=== PATIENT | female | born 1945 | race Caucasian/White ===

== ENCOUNTER → 2017-12-23 | Outpatient (CLI) | payer OTHER ==
[~2017-12-23] MED LIST: ARTIOIN OP; BENTYL PO; CARV6.252 PO; CLOP1TAB15 PO; CRAN1CAP6 PO; CYCL10TA6 PO; ERGO500037 PO; EZET10TA38 PO; ISOS30TA35 PO; METF-382 PO; NITR0.4S UT; NVLGI/PEN SC; OXYC1TAB3 PO; SPIR50TA2 PO; VENL150C56 PO
[2017-12-23 12:55] LABS: HEMATOCRIT 31.6 % (37-47); HEMOGLOBIN 10.1 g/dL (12.0-16.0); MEAN CELL VOLUME 77.6 fL (80-100); MEAN CORPUSCULAR HEMOGLOBIN 24.8 pg (25-34); MEAN PLATELET VOLUME 10.5 fL (7.4-10.4); PLATELET COUNT 86 K/uL (130-400); RED CELL DISTRIBUTION WIDTH CV 16.4 % (11.5-14.5); RED CELL DISTRIBUTION WIDTH SD 46.5 fL (36.4-46.3); WHITE BLOOD COUNT 2.52 K/uL (4.8-10.8)
--- NOTE | 2017-12-23 17:18 | DIAGNOSTIC IMAGING REPORT ---
BONE SCAN 3 PHASE LIMITED HISTORY: 72 years-old Female M25.561 acute right knee pain and swelling with history of right knee total joint arthroplasty. Clinical concern for possible fracture or infection. COMPARISON: None available TECHNIQUE: 3 phase bone scan was obtained utilizing 27 mCi technetium 99 MDP. Images were obtained 3 hours post injection. FINDINGS: There is symmetric flow noted about the bilateral lower extremities. No increased flow identified to suggest hyperemia. Blood pool images demonstrate mildly increased tracer uptake about the distal femur and proximal tibia with central joint space photopenia compatible with right knee total joint arthroplasty. The delayed images demonstrate moderately increased tracer activity about the right knee, notably within the region of the patella and proximal tibia and to a lesser extent within the region of the medial and lateral femoral condyles. Physiologic tracer activity noted within the urinary bladder and left knee. Mildly increased tracer activity about the bilateral feet and ankles suggest degenerative changes. IMPRESSION: Right knee arthroplasty. Mildly increased blood pool and moderately increased delayed uptake about the right knee with symmetric appearance of the bilateral knees on the flow images. These findings suggest physiologic remodeling associated with joint arthroplasty. No definite evidence of hardware loosening or septic arthropathy. Correlation with follow-up radiographs recommended. The above report was generated using voice recognition software. It may contain grammatical, syntax or spelling errors. Electronically signed by: Chet Troncoso M.D. 12/23/2017 5:16 PM Dictated Date/Time: 12/23/2017 3:53 PM
== END | disposition home or self-care (01) ==
LOC: C.NUCL 11:14
PROVIDERS: ATTEND Orthopaedic Surgery
DX: T84.84XA Pain due to internal orthopedic prosthetic devices, implants and grafts, initial encounter (principal); X58.XXXA Exposure to other specified factors, initial encounter; M25.561 Pain in right knee

== ENCOUNTER → 2017-12-29 | Day surgery (SDC) | payer OTHER ==
[2017-12-22 13:25] VITALS: Ht 152.4 cm; Wt 84.1 kg
[~2017-12-29] VITALS: Ht 152.4 cm; Wt 84.1 kg
[~2017-12-29] MED LIST changes: +FENTANYL CITRATE INJ 50 MCG/1 ML 2 ML VIAL ONE; +LIDOCAINE HCL 2% 2 ML VIAL (20MG/ML) ONE; +ONDANSETRON INJ 2 MG/ML 2 ML VIAL IV PRN; +PROPOFOL IV EMULSION 10 MG/ML 20 ML VIAL IV ONE
[2017-12-29 09:36] VITALS: TEMP 36.4
--- NOTE | 2017-12-29 09:52 | Endo History and Physical ---
History & Physical Date of Service: Dec 29, 2017. Chief Complaint: dysphagia Referring Physician: Dr. Rinku Miramontes History of Present Illness Patient with a history of cirrhosis / esophageal varices referred for surveillance + evaluation of 3 months of intermitant solid food dysphagia. Past Surgical History Hx Cardiac Surgery: Yes (HEART CATH-1 STENT) Hx Internal Defibrillator: No Hx Pacemaker: No Hx Abdominal Surgery: Yes (MARY) Hx of Implantable Prosthesis: No Hx Post-Op Nausea and Vomiting: No Hx Cancer Surgery: Yes (BCC EXCISION FOREHEAD) Hx Thoracic Surgery: No Hx Orthopedic: Yes (LUMBAR SURGERY X 3 (NEUROSTIMULATOR INSERTED), RT/LEFT HIP (22 TOTAL)) Hx Urinary Tract Surgery: No Family History None Social History Smoking Status: Current Every Day Smoker Hx Substance Use: Yes (SEE MED REC) Hx Alcohol Use: No Allergies Coded Allergies: Adhesives (Verified Allergy, Intermediate, ALL TAPE AND PAPER TAPE "RASH" , 12/22/17) Atorvastatin (Verified Allergy, Unknown, MUSCLE CRAMPS, 12/22/17) Rosuvastatin (Verified Allergy, Unknown, MUSCLE PAIN, 12/22/17) Alendronate (Verified Adverse Reaction, Intermediate, "SEVERE ACID REFLUX ", 12/22/17) Ibandronic Acid (Verified Adverse Reaction, Intermediate, "SEVERE ACID REFLUX", 12/22/17) Current Medications Reported Home Medications Medications Dose Route/Sig Max Daily Dose Days Date Category Dose Instructions Vitamin D 20306 Unit (Ergocalciferol) 50,000 Unit Cap 50,000 Unit PO WK 12/22/17 Reported TAKES ON SUNDAYS Effexor Extended Rel (Venlafaxine Hcl) 150 Mg Cap 150 Mg PO QAM 12/22/17 Reported Aldactone (Spironolactone) 50 Mg Tab 50 Mg PO QAM 12/22/17 Reported Roxicodone Ir (Oxycodone HCl) 5 Mg Tab 5 Mg PO Q6H PRN 12/22/17 Reported Nitrostat (Nitroglycerin) 0.4 Mg Sub 0.4 Mg UT PRN PRN 12/22/17 Reported Glucophage Ext Rel (Metformin HCl) 500 Mg Tab 500 Mg PO BID 12/22/17 Reported Imdur Ext Rel (Isosorbide Mononitrate) 30 Mg Tabcr 1 Tab PO QAM 12/22/17 Reported Novolog Flexpen (Insulin Aspart) 100 Units/Ml Inj 1 Dose SC AC 12/22/17 Reported PER SLIDING SCALE Vytorin 10MG/20MG (Ezetimibe/Simvastatin) Tab 1 Tab PO QAM 12/22/17 Reported [Bentyl] 20 Mg PO Q6H PRN 12/22/17 Reported Flexeril (Cyclobenzaprine Hcl) 10 Mg Tab 10 Mg PO TID PRN 12/22/17 Reported Cranberry (Cranberry (Vaccinium Macrocarp) 250 Mg Cap 1 Cap PO QAM 12/22/17 Reported Plavix (Clopidogrel Bisulfate) 75 Mg Tab 75 Mg PO QAM 12/22/17 Reported Coreg (Carvedilol) 6.25 Mg Tab 6.25 Mg PO BID 12/22/17 Reported Lacri-Lube Sop Oph Oint (Artificial Tears) Oint 0.25-0.5 Inch OP TID PRN 12/22/17 Reported TO THE AFFECTED EYE UP TO QID PRN Vital Signs Weight (Kilograms): 84.09 Height (Feet): 5 Height (Inches): 0 Date Time Temp Pulse Resp B/P (MAP) Pulse Ox O2 Delivery O2 Flow Rate FiO2 12/29/17 09:36 36.4 96 20 135/60 (85) 96 Room Air Physical Exam General Appearance: no apparent distress Respiratory/Chest: Respiratory effort: no dyspnea Cardiovascular: Heart Auscultation: RRR, murmur Abdomen: Inspection & Palpation: soft Assessment and Plan EGD to screen for esophageal varices and evaluate the history a dysphagia. Given the varices and low platelet count she is at a higher than average risk for bleeding, complications. If dilation looks safe we will try and proceed with a low level dilation.
--- NOTE | 2017-12-29 10:56 | Discharge Instructions ---
Endoscopy Patient Instructions Date / Procedure(s) Performed Dec 29, 2017. EGD Allergy Information Coded Allergies: Adhesives (Verified Allergy, Intermediate, ALL TAPE AND PAPER TAPE "RASH" , 12/22/17) Atorvastatin (Verified Allergy, Unknown, MUSCLE CRAMPS, 12/22/17) Rosuvastatin (Verified Allergy, Unknown, MUSCLE PAIN, 12/22/17) Alendronate (Verified Adverse Reaction, Intermediate, "SEVERE ACID REFLUX ", 12/22/17) Ibandronic Acid (Verified Adverse Reaction, Intermediate, "SEVERE ACID REFLUX", 12/22/17) Discharge Date / Findings Dec 29, 2017. Esophageal varices Portal gastropathy Medication Instructions Stopped Medication(s): stopped Plavix on Tuesday Reported Home Medications Medications Dose Route/Sig Max Daily Dose Days Date Category Dose Instructions Vitamin D 28914 Unit (Ergocalciferol) 50,000 Unit Cap 50,000 Unit PO WK 12/22/17 Reported TAKES ON SUNDAYS Effexor Extended Rel (Venlafaxine Hcl) 150 Mg Cap 150 Mg PO QAM 12/22/17 Reported Aldactone (Spironolactone) 50 Mg Tab 50 Mg PO QAM 12/22/17 Reported Roxicodone Ir (Oxycodone HCl) 5 Mg Tab 5 Mg PO Q6H PRN 12/22/17 Reported Nitrostat (Nitroglycerin) 0.4 Mg Sub 0.4 Mg UT PRN PRN 12/22/17 Reported Glucophage Ext Rel (Metformin HCl) 500 Mg Tab 500 Mg PO BID 12/22/17 Reported Imdur Ext Rel (Isosorbide Mononitrate) 30 Mg Tabcr 1 Tab PO QAM 12/22/17 Reported Novolog Flexpen (Insulin Aspart) 100 Units/Ml Inj 1 Dose SC AC 12/22/17 Reported PER SLIDING SCALE Vytorin 10MG/20MG (Ezetimibe/Simvastatin) Tab 1 Tab PO QAM 12/22/17 Reported [Bentyl] 20 Mg PO Q6H PRN 12/22/17 Reported Flexeril (Cyclobenzaprine Hcl) 10 Mg Tab 10 Mg PO TID PRN 12/22/17 Reported Cranberry (Cranberry (Vaccinium Macrocarp) 250 Mg Cap 1 Cap PO QAM 12/22/17 Reported Plavix (Clopidogrel Bisulfate) 75 Mg Tab 75 Mg PO QAM 12/22/17 Reported Coreg (Carvedilol) 6.25 Mg Tab 6.25 Mg PO BID 12/22/17 Reported Lacri-Lube Sop Oph Oint (Artificial Tears) Oint 0.25-0.5 Inch OP TID PRN 12/22/17 Reported TO THE AFFECTED EYE UP TO QID PRN Provider Instructions Activity Restrictions - No exercising or heavy lifting for 24 hours. - Do not drink alcohol the day of the procedure. - Do not drive a car or operate machinery until the day after the procedure. - Do not make any important decisions or sign important papers in 24 hours after the procedure. Following Day: - Return to full activity which may include returning to work/school. Diet Start your diet with liquids and light foods (jello, soup, juice, toast). Then eat your usual diet if not nauseated. Treatment For Common After Affects For mild abdominal pain, bloating, or excessive gas: - Rest - Eat lightly - Lie on right side Follow-Up Information Follow-up with Dr. Rinku Miramontes and Ms. Graham as scheduled Repeat EGD in 1 year for surveillance of varices If difficulty swallowing persists would consider an upper GI series Anesthesia Information What You Should Know You have had a procedure that required some medicine to reduce anxiety and discomfort. This treatment is called moderate sedation. After receiving the treatment, you may be sleepy, but you will be able to breathe on your own. The effects of the treatment may last for several hours. Follow these instructions along with Activity/Diet recommendations noted above: * Do NOT do anything where dizziness or clumsiness would be dangerous. * Rest quietly at home today, then you can be up and about tomorrow. * Have a responsible person stay with you the rest of today. * You may have had an I.V. today. If so, you may take the dressing off later today. Recommendations Call your doctor if: * Trouble breathing * Continuous vomiting for more than 24 hours * Temperature above 101 degrees * Severe abdominal pain or bloating * Pain not relieved by pain medicine ordered * There is increased drainage or redness from any incision * A large amount of rectal bleeding greater than 2-3 tablespoons. (If you had a polyp/s removed or have hemorrhoids, a small amount of blood - from the rectum is to be expected.) * You have any unanswered questions or concerns. IN THE EVENT OF A SERIOUS EMERGENCY, GO TO THE NEAREST EMERGENCY ROOM Your discharge instructions were prepared by provider Nikky Osborne. Patient Instructions Signature Page Tracy Santos Patient (or Guardian) Signature/Date: I have read and understand the instructions given to me by my caregivers. Caregiver/RN/Doctor Signature/Date: The above-named patient and/or guardian has received patient instructions on this date. + Original Patient Signature Page (only) stays with chart. Please make copy for patient.
--- NOTE | 2017-12-29 11:01 | GI REPORT ---
Procedure Date: 12/29/2017 10:12 AM Procedure: Upper GI endoscopy Indications: Dysphagia, Follow-up of esophageal varices Medicines: Monitored Anesthesia Care Complications: No immediate complications. Estimated blood loss: Minimal. Estimated Blood Loss: Estimated blood loss was minimal. Procedure: Pre-Anesthesia Assessment: - Prior to the procedure, a History and Physical was performed, and patient medications, allergies and sensitivities were reviewed. The patient's tolerance of previous anesthesia was reviewed. - The risks and benefits of the procedure and the sedation options and risks were discussed with the patient. All questions were answered and informed consent was obtained. - Patient identification and proposed procedure were verified prior to the procedure by the physician, the nurse and the pierogi maker. The procedure was verified in the procedure room. - Pre-procedure physical examination revealed no contraindications to sedation. - ASA Grade Assessment: III - A patient with severe systemic disease. - After reviewing the risks and benefits, the patient was deemed in satisfactory condition to undergo the procedure. - The anesthesia plan was to use monitored anesthesia care (MAC). - Immediately prior to administration of medications, the patient was re-assessed for adequacy to receive sedatives. - The heart rate, respiratory rate, oxygen saturations, blood pressure, adequacy of pulmonary ventilation, and response to care were monitored throughout the procedure. - The physical status of the patient was re-assessed after the procedure. After obtaining informed consent, the endoscope was passed under direct vision. Throughout the procedure, the patient's blood pressure, pulse, and oxygen saturations were monitored continuously. The On-site loaner was introduced through the mouth, and advanced to the third part of duodenum. The upper GI endoscopy was accomplished without difficulty. The patient tolerated the procedure well. Findings: No endoscopic abnormality was evident in the esophagus to explain the patient's complaint of dysphagia. It was decided, however, to proceed with dilation of the entire esophagus. A guidewire was placed and the scope was withdrawn. Dilation was performed with a Savary dilator with no resistance at 42 Fr and 45 Fr. The endoscope was then reinserted to evaluate the success of the procedure. Estimated blood loss: none. Three columns of non-bleeding grade II varices were found in the middle third of the esophagus and in the lower third of the esophagus, 31 to 40 cm from the incisors. They were 5 mm in largest diameter. No stigmata of recent bleeding were evident and no red phuc signs were present. Estimated blood loss: none. Mild portal hypertensive gastropathy was found in the entire examined stomach. The examined duodenum was normal. Impression: - No endoscopic esophageal abnormality to explain patient's dysphagia. Esophagus dilated to 45 Fr today. - Non-bleeding grade II esophageal varices. - Portal hypertensive gastropathy. - Normal examined duodenum. - No specimens collected. Recommendation: - Discharge patient to home (ambulatory). - Advance diet as tolerated today. - Repeat upper endoscopy in 1 year for surveillance. - Return to referring physician as previously scheduled. - If dysphagia persists would consider an upper GI series and speech pathology evaluation. Nikky Osborne D.O. Nikky Osborne, DO 12/29/2017 11:00:33 AM This report has been signed electronically. Note Initiated On: 12/29/2017 10:12 AM I attest to the content of the Intraoperative Record and orders documented therein, exceptions below
--- NOTE | 2017-12-29 11:23 | Anesthesiology Progress Note ---
Anesthesia Post Op Note Date & Time Dec 29, 2017 at 11:23 Vital Signs Pain Intensity: 2 Vital Signs Past 12 Hours Date Time Temp Pulse Resp B/P (MAP) Pulse Ox O2 Delivery O2 Flow Rate FiO2 12/29/17 11:10 92 16 134/75 (94) 95 Room Air 12/29/17 10:55 88 16 100/53 (69) 99 Room Air 12/29/17 09:36 36.4 96 20 135/60 (85) 96 Room Air Notes Mental Status: alert / awake / arousable, participated in evaluation Pt Amnestic to Procedure: Yes Nausea / Vomiting: adequately controlled Pain: adequately controlled Airway Patency, RR, SpO2: stable & adequate BP & HR: stable & adequate Hydration State: stable & adequate Anesthetic Complications: no major complications apparent
[2017-12-29 11:25] VITALS: BP 135/56; PULSE 91; O2SAT 96
== END | disposition home or self-care (01) ==
LOC: C.GI 09:04
PROVIDERS: ATTEND Internal Medicine Gastroenterology
DX: R13.10 Dysphagia, unspecified (principal); K75.81 Nonalcoholic steatohepatitis (NASH); K74.60 Unspecified cirrhosis of liver; I85.00 Esophageal varices without bleeding; I25.10 Atherosclerotic heart disease of native coronary artery without angina pectoris; E11.9 Type 2 diabetes mellitus without complications; F17.200 Nicotine dependence, unspecified, uncomplicated; Z90.49 Acquired absence of other specified parts of digestive tract; Z85.828 Personal history of other malignant neoplasm of skin

== ENCOUNTER → 2018-02-01 | Outpatient (CLI) | payer OTHER ==
[~2018-02-01] MED LIST changes: -FENTANYL CITRATE INJ 50 MCG/1 ML 2 ML VIAL ONE; -LIDOCAINE HCL 2% 2 ML VIAL (20MG/ML) ONE; -ONDANSETRON INJ 2 MG/ML 2 ML VIAL IV PRN; -PROPOFOL IV EMULSION 10 MG/ML 20 ML VIAL IV ONE
--- NOTE | 2018-02-01 12:19 | DIAGNOSTIC IMAGING REPORT ---
ABDOMEN LIMITED (US) HISTORY: Pain. Nausea. CIRROHSIS OF LIVER W/O ASCITIES,FATTY LIVER,...... COMPARISON: None. FINDINGS: Pancreas: The pancreas demonstrates a normal echotexture. Liver: Heterogeneous internal architecture. Slight outer cortical capsular scarring. No biliary ductal distention. Gallbladder: Prior cholecystectomy CBD: 9 mm possibly on a postoperative basis Right kidney: No hydronephrosis. Spleen: Enlarged at 17 cm IMPRESSION: 1. Findings suggesting early hepatic cirrhosis. 2. Splenomegaly at 17 cm. 3. Prominence of the extra hepatic common bile duct at 9 mm most likely on a postoperative basis The above report was generated using voice recognition software. It may contain grammatical, syntax or spelling errors. Electronically signed by: Shashank Pierre M.D. 02/01/2018 12:17 PM Dictated Date/Time: 02/01/2018 12:15 PM
== END | disposition home or self-care (01) ==
LOC: C.ULTR 11:46
PROVIDERS: ATTEND Physician Assistant
DX: K74.60 Unspecified cirrhosis of liver (principal); K76.0 Fatty (change of) liver, not elsewhere classified; I85.00 Esophageal varices without bleeding; K76.6 Portal hypertension; R13.10 Dysphagia, unspecified; R16.1 Splenomegaly, not elsewhere classified